=== PATIENT | male | born 1965 | race Caucasian/White ===

== ENCOUNTER 2016-07-15 07:15 | Day surgery (SDC) | payer OTHER ==
[2016-07-15] MEDS ORDERED: LACTATED RINGERS 1,000 ML IV ONE (07:38)
[2016-07-15] MEDS ORDERED: fentaNYL 250 MCG/5 ML VIAL IVP ONE (08:48)
[2016-07-15] MEDS ORDERED: MIDAZOLAM 2 MG/2 ML VIAL IVP ONE (08:48)
[2016-07-15] MEDS ORDERED: SIMETHICONE 40 MG/0.6 ML 30 ML BOTTLE PO ONE (08:48)
== END 2016-07-15 07:16 | disposition home or self-care (01) ==
PROC: 0DJD8ZZ Inspection of Lower Intestinal Tract, Via Natural or Artificial Opening Endoscopic (ICD-10-PCS; principal; 2016-07-15 08:30)
PROC: 0DB48ZX Excision of Esophagogastric Junction, Via Natural or Artificial Opening Endoscopic, Diagnostic (ICD-10-PCS; 2016-07-15 08:30)
DX: Z12.11 Encounter for screening for malignant neoplasm of colon (principal); R13.10 Dysphagia, unspecified; K21.9 Gastro-esophageal reflux disease without esophagitis
CPT/HCPCS: 43239; 45378; A9270; J3010; J7120

== ENCOUNTER 2016-10-28 08:45 | Outpatient (CLI) | payer OTHER ==
[2016-10-28 10:36] LABS: CC,BF RBC 15076 /mm^3
[2016-10-28 10:43] LABS: BF CLARITY HAZY
[2016-10-28 10:45] LABS: BF COLOR XANTHOCHROMIC
[2016-10-28 11:33] LABS: LYMPHOCYTES %,BODY FLUID 24; NEUTROPHILS %, BF 7 %
[2016-10-28 11:34] LABS: EOSINOPHILS %,BODY FLUID 2 %; MACROPHAGES %,BODY FLUID 46 %; MESOTHELIAL %, BF 3 %; MONOCYTES %,BODY FLUID 18 %
== END 2016-10-28 08:46 | disposition home or self-care (01) ==
LOC: LAB.R 08:45
DX: M71.9 Bursopathy, unspecified (principal)
CPT/HCPCS: 87205; 89051; 89060